=== PATIENT | female | born 1990 ===

== ENCOUNTER 2018-02-11 16:55 | Emergency (ER) | payer OTHER ==
[~2018-02-11] VITALS: Ht 170.2 cm; Wt 117.9 kg
--- NOTE | 2018-02-11 17:07 | ED GU-Female ---
General Stated Complaint: VAGINAL BLEEDING 6W OB Source: patient Exam Limitations: no limitations History of Present Illness Date Seen by Provider: Feb 11, 2018 Time Seen by Provider: 17:03 Initial Comments Today just a few moments ago she urinated and after wiping noticed a streak of blood on the toilet paper. She states that her first day of last menstrual period is December 24. She estimates herself to be about 6 weeks gestation. She is . She has not noticed any passage of tissue or clots, she has no abdominal or low back discomfort or cramping. No fevers or chills or nausea. She plans to see Dr. Morin for this but has not yet seen her. Timing/Duration: just prior to arrival Severity/Quality: other (no pain) Radiation: none Allergies and Home Medications Home Medications Cephalexin 500 Mg Capsule, 500 MG PO TID . Prescribed by: VIVIAN CRUZ on 02/11/18 2954 Patient Home Medication List Home Medication List Reviewed: Yes Review of Systems Review of Systems Constitutional: see HPI EENTM: see HPI Respiratory: no symptoms reported Cardiovascular: no symptoms reported Genitourinary: no symptoms reported Musculoskeletal: see HPI Skin: no symptoms reported Psychiatric/Neurological: No Symptoms Reported Past Jzazieo-Eedkuf-Pessqk Hx Patient Social History Recent Foreign Travel: No Contact w/Someone Who Travel: No Physical Exam Vital Signs Vital Signs - First Documented 02/11/18 16:58 Temp 99.4 Pulse 94 Resp 17 B/P (MAP) 142/90 (107) Pulse Ox 98 O2 Delivery Room Air Capillary Refill : Height, Weight, BMI Height: '" Weight: lbs. oz. kg; BMI Method: General Appearance: WD/WN, no apparent distress HEENT: PERRL/EOMI, normal ENT inspection Respiratory: no respiratory distress, no accessory muscle use Gastrointestinal: normal bowel sounds, non tender, soft Extremities: normal range of motion Neurologic/Psychiatric: alert, normal mood/affect, oriented x 3 Skin: normal color, warm/dry Progress/Results/Core Measures Suspected Sepsis SIRS Temperature: Pulse: Respiratory Rate: Laboratory Tests 02/11/18 17:05: White Blood Count 10.1 Blood Pressure / Mean: Laboratory Tests 02/11/18 17:05: Platelet Count 302 Results/Orders Lab Results Laboratory Tests Test 02/11/18 17:05 02/11/18 17:20 Range/Units White Blood Count 10.1 4.3-11.0 10^3/uL Red Blood Count 5.30 4.35-5.85 10^6/uL Hemoglobin 15.0 11.5-16.0 G/DL Hematocrit 44 35-52 % Mean Corpuscular Volume 83 80-99 FL Mean Corpuscular Hemoglobin 28 25-34 PG Mean Corpuscular Hemoglobin Concent 34 32-36 G/DL Red Cell Distribution Width 13.7 10.0-14.5 % Platelet Count 302 130-400 10^3/uL Mean Platelet Volume 11.0 H 7.4-10.4 FL Neutrophils (%) (Auto) 57 42-75 % Lymphocytes (%) (Auto) 29 12-44 % Monocytes (%) (Auto) 7 0-12 % Eosinophils (%) (Auto) 7 0-10 % Basophils (%) (Auto) 1 0-10 % Neutrophils # (Auto) 5.7 1.8-7.8 X 10^3 Lymphocytes # (Auto) 3.0 1.0-4.0 X 10^3 Monocytes # (Auto) 0.7 0.0-1.0 X 10^3 Eosinophils # (Auto) 0.7 H 0.0-0.3 10^3/uL Basophils # (Auto) 0.1 0.0-0.1 10^3/uL Human Chorionic Gonadotropin, Quant 08192 H <5 MIU/ML Urine Color YELLOW Urine Clarity SLIGHTLY CLOUDY Urine pH 6.5 5-9 Urine Specific Royal 1.015 L 1.016-1.022 Urine Protein NEGATIVE NEGATIVE Urine Glucose (UA) NEGATIVE NEGATIVE Urine Ketones NEGATIVE NEGATIVE Urine Nitrite NEGATIVE NEGATIVE Urine Bilirubin NEGATIVE NEGATIVE Urine Urobilinogen NORMAL NORMAL MG/DL Urine Leukocyte Esterase 2+ H NEGATIVE Urine RBC (Auto) 4+ H NEGATIVE Urine RBC 2-5 H /HPF Urine WBC 10-25 H /HPF Urine Squamous Epithelial Cells 2-5 /HPF Urine Crystals NONE /LPF Urine Bacteria MODERATE H /HPF Urine Casts NONE /LPF Urine Mucus NEGATIVE /LPF Urine Culture Indicated YES My Orders Orders - VIVIAN CRUZ FLANGER Cbc With Automated Diff (02/11/18 17:02) Abo Rh Type (02/11/18 17:02) Ua Culture If Indicated (02/11/18 17:02) Hcg,Quantitative (02/11/18 17:29) Urine Culture (02/11/18 17:20) Vital Signs/I&O 02/11/18 16:58 Temp 99.4 Pulse 94 Resp 17 B/P (MAP) 142/90 (107) Pulse Ox 98 O2 Delivery Room Air Capillary Refill : Departure Communication (Admissions) [id number]. Still no abdominal or back pain. No additional bleeding while in the emergency room. We do not have a formal ultrasound available at this time. Dr. Carpenter was able to do the bedside ultrasound and findings the appearance of a gravid uterus but unable to identify any gestational sac. Impression Primary Impression: Vaginal bleeding affecting early Additional Impression: Urinary tract infection Disposition: HOME, SELF-CARE Condition: Stable Departure-Patient Inst. Decision time for Depature: 17:05 Referrals: FELI MORIN DO (PCP/Family) Primary Care Physician Patient Instructions: Threatened Miscarriage (DC) Add. Discharge Instructions: 1. Call Dr. Morin to make an appointment for follow-up. You will need to have your hCG level rechecked in a few days. Today was 16,000. Return to ER for any fevers chills or other concerns. If this is going to result in miscarriage you will notice increased bleeding and abdominal cramping over the next few days. However, not all vaginal bleeding in early indicates subsequent miscarriage. so the most helpful factor determining this is a follow-up hCG levels and ultrasound. Call Dr. Morin tomorrow to let her know that you've had an episode of vaginal bleeding and were seen in the emergency room. Scripts Cephalexin (Keflex) 500 Mg Capsule 500 MG PO TID, #15 CAP . Prov: VIVIAN CRUZ APRN 02/11/18 VIVIAN CRUZ APRN Feb 11, 2018 17:07
[2018-02-11 17:20] LABS: BASOPHILS # (AUTO) 0.1 10^3/uL (0.0-0.1); BASOPHILS % (AUTO) 1 % (0-10); EOSINOPHILS # (AUTO) 0.7 10^3/uL (0.0-0.3); EOSINOPHILS % (AUTO) 7 % (0-10); HEMATOCRIT 44 % (35-52); LYMPHOCYTES % (AUTO) 29 % (12-44); MEAN CORPUSCULAR HEMOGLOBIN 28 PG (25-34); MEAN CORPUSCULAR HGB CONC 34 G/DL (32-36); MEAN CORPUSCULAR VOLUME 83 FL (80-99); MONOCYTES # (AUTO) 0.7 X 10^3 (0.0-1.0); MONOCYTES % (AUTO) 7 % (0-12); NEUTROPHILS # (AUTO) 5.7 X 10^3 (1.8-7.8); NEUTROPHILS % (AUTO) 57 % (42-75); PLATELET COUNT 302 10^3/uL (130-400); RED CELL DISTRIBUTION WIDTH 13.7 % (10.0-14.5); WHITE BLOOD COUNT 10.1 10^3/uL (4.3-11.0)
[2018-02-11 17:29] LABS: BILIRUBIN,URINE NEGATIVE (NEGATIVE); CLARITY,URINE SLIGHTLY CLOUDY; COLOR,URINE YELLOW; GLUCOSE, URINE (UA) NEGATIVE (NEGATIVE); KETONES,URINE NEGATIVE (NEGATIVE); LEUKOCYTE ESTERASE ,URINE 2+ (NEGATIVE); NITRITE,URINE NEGATIVE (NEGATIVE); PH,URINE 6.5 (5-9); PROTEIN,URINE NEGATIVE (NEGATIVE); UROBILINOGEN,URINE NORMAL (NORMAL)
[2018-02-11 17:50] LABS: BACTERIA,URINE MODERATE /HPF
[2018-02-11] MEDS ORDERED: CEPH-507 PO ×2 (18:51→18:54)
[2018-02-11 18:59] VITALS: BP 139/83
== END 2018-02-11 18:59 | disposition home or self-care (01) ==
LOC: ER 16:57
DX: O20.9 Hemorrhage in early pregnancy, unspecified (principal); O23.41 Unspecified infection of urinary tract in pregnancy, first trimester; Z88.1 Allergy status to other antibiotic agents; Z3A.01 Less than 8 weeks gestation of pregnancy
CPT/HCPCS: 36415; 81000; 84702; 85025; 86900; 86901; 87088; 99282